=== PATIENT | male | born 1975 | race Hispanic/Latino ===

== ENCOUNTER 2018-07-20 17:33 | Emergency (ER) | payer OTHER ==
[2018-07-20 17:47] VITALS: BP 145/80; PULSE 83; RESP 18; TEMP 97.7
[2018-07-20] MEDS ORDERED: Fluorescein 1 mg Ophthalmic Strip ONE (18:20)
[2018-07-20] MEDS ORDERED: Tetracaine 0.5% Ophth 2 ML BOTTLE ONE (18:20)
--- NOTE | 2018-07-20 19:01 | ED PDOC ---
HPI: Eye Injury/Pain Time Seen by Provider: 07/20/18 17:54 Chief Complaint (Nursing): Eye Problem Chief Complaint (Provider): Eye problem History Per: Patient History/Exam Limitations: no limitations Onset/Duration Of Symptoms: Hrs (x10) Current Symptoms Are (Timing): Still Present Additional Complaint(s): 43 y/o male presents to the ER with right eye blurriness. Patient reports he woke up at 10:00 with blurry vision in the right eye with pain. Pain resolved in about 15 minutes but blurriness remained prompting ED visit. He states he had a similar episode a year and a half ago but does not remember which eye it was and resolved after a couple of hours. Patient has a history of glaucoma and states he is compliant with his drops. Denies itchiness, burning sensation, foreign body sensation, excessive tears, or discharge. Patient states he uses glasses but never used contacts. Denies any trauma. PMD: Criselda Dunn Past Medical History Reviewed: Historical Data, Nursing Documentation, Vital Signs Vital Signs: Last Vital Signs Temp 97.7 F 07/20/18 17:43 Pulse 83 07/20/18 17:43 Resp 18 07/20/18 17:43 BP 145/80 07/20/18 17:43 Pulse Ox 95 07/20/18 17:43 Primary Care Provider: Criselda Beltran - Medical History Other PMH: Glaucoma - Surgical History Surgical History: No Surg Hx - Family History Family History: States: Unknown Family Hx - Social History Current smoker - smoking cessation education provided: No Alcohol: Social Drugs: Denies - Allergies Allergies/Adverse Reactions: Allergies Allergy/AdvReac Type Severity Reaction Status Date / Time No Known Allergies Allergy Verified 07/20/18 17:43 Review of Systems ROS Statement: Except As Marked, All Systems Reviewed And Found Negative Eyes: Positive for: Other (Right eye blurriness; (-) itchiness, (-) burning sensation, (-) foreign body sensation, (-) excessive tears, (-) discharge) Physical Exam - Reviewed Nursing Documentation Reviewed: Yes Vital Signs Reviewed: Yes - Physical Exam Appears: Positive for: Well, Non-toxic, No Acute Distress Head Exam: Positive for: ATRAUMATIC, NORMAL INSPECTION, NORMOCEPHALIC Eye Exam: Positive for: EOMI, PERRL. Negative for: Nystagmus, Conjunctival injection Neurological/Psych: Positive for: Alert, Oriented (x3). Negative for: Motor/Sensory Deficits - ECG O2 Sat by Pulse Oximetry: 95 (RA) Pulse Ox Interpretation: Normal - Progress ED Course And Treament: Visual accuity is 20/20 in each eye. Froylan pen testing determined left eye is 19, 25, 30 and right eye is 23, 24, 21 which is normal. Patient reports that when he does not take his medications, his pressures are typically over 30. Fluorescein test revealed no increase uptake which is negative for a corneal abrasion. Limited fundoscopic exam demonstrates no difference in vessels or fundus between both eyes. No obvious hemorrhage noted. Bedside ultrasound of the right orbit showed no debris, no lens dislocation, and no posterior orbit layering. Medical Decision Making Medical Decision Making: Initial Impression: Blurry vision with normal acuity Initial Plan: Discussed with Dr. Wolff, ophthalmology cement conveyor operator, and patient to follow up in his office Sunday at 09:00. -------- --------- Scribe Attestation: Documented by Aaron Orr acting as a scribe for Winifred Izaguirre MD. Provider Scribe Attestation: All medical record entries made by the Scribe were at my direction and personally dictated by me. I have reviewed the chart and agree that the record accurately reflects my personal performance of the history, physical exam, medical decision making, and the department course for this patient. I have also personally directed, reviewed, and agree with the discharge instructions and disposition. Disposition - Clinical Impression Clinical Impression: Blurry vision, right eye Counseled Patient/Family Regarding: Studies Performed, Diagnosis, Need For Followup - Disposition Referrals: Justice Wolff MD [Staff Provider] - 07/22/18 9:00 am Disposition: Routine/Home Disposition Time: 18:55 Condition: STABLE Additional Instructions: FOLLOWUP WITH YOUR OPTHALMOLOGIST OR DR WOLFF SUNDAY MORNING RETURN TO ER FOR WORSENING SYMPTOMS (COMPLETE VISION LOSS, SEVERE INTRACTABLE PAIN, HEADACHE.) CONTINUE YOUR GLAUCOMA DROPS PRESCRIBED
[2018-07-20 19:21] VITALS: O2SAT 95
== END 2018-07-20 19:19 | disposition home or self-care (01) ==
LOC: H.ER 17:33
DX: H53.8 Other visual disturbances (principal); H40.9 Unspecified glaucoma